=== PATIENT | female | born 1950 | race Two or more races ===

== ENCOUNTER 2022-06-09 13:46 | Outpatient (CLI) | payer OTHER ==
[~2022-06-09 13:46] MED LIST: NABUMETONE500 MG PO; PERCOCET 5/3251 TAB PO
== END 2022-06-09 13:52 | disposition home or self-care (01) ==
LOC: MRI 13:46
PROVIDERS: ATTEND Orthopaedic Surgery
DX: M25.511 Pain in right shoulder (principal)
CPT/HCPCS: 73221

== ENCOUNTER 2024-06-08 11:00 | Inpatient (IN) | payer OTHER ==
[~2024-06-08] VITALS: Ht 167.6 cm; Wt 88.0 kg
[2024-06-08] MEDS ORDERED: TOPROL XL50 M1 (13:17)
[2024-06-08] MEDS ORDERED: LEVOTHYROXINE25 MCG PO (13:17)
[2024-06-08] MEDS ORDERED: COZAAR100 MG (13:17)
[2024-06-19] MEDS ORDERED: OxyCODONE HCL/APAP UD (PERCOCET) PO PRN (09:15)
[2024-06-19] MEDS ORDERED: ONDANSETRON HCL 2 MG/ML VIAL IV PRN (09:15)
[2024-06-19] MEDS ORDERED: MORPHINE SULFATE 2 MG/ML CARTRIDGE IV ONE (12:00)
[2024-06-19] MEDS ORDERED: CEFAZOLIN SODIUM 1,000 MG VIAL IV SCH (12:00)
[2024-06-19] MEDS ORDERED: MORPHINE SULFATE 4 MG/ML CARTRIDGE IV SCH (12:00)
[2024-06-19 14:00] VITALS: BP 129/66; O2SAT 98
[2024-06-19 15:47] VITALS: BP 139/79; O2SAT 95
[2024-06-19] MEDS ORDERED: LIDOCAINE HCL 1%/EPINEPHRINE 20ML VIAL IJ ONE (20:15)
[2024-06-19] MEDS ORDERED: BUPIVACAINE HCL/PF 0.25% 30ML VIAL InF ONE (20:15)
[2024-06-19] MEDS ORDERED: MORPHINE SULFATE 4 MG/ML VIAL IV ONE (20:15)
[2024-06-19] MEDS ORDERED: TRANEXAMIC ACID 100MG/1ML (1000MG) AMPUL IV ONE (20:15)
[2024-06-19] MEDS ORDERED: KETOROLAC TROMETHAMINE 60 MG VIAL IM ONE (20:15)
[2024-06-19] MEDS ORDERED: ORPHENADRINE CITRATE 100 MG TABLET PO SCH (21:00)
[2024-06-19] MEDS ORDERED: GABAPENTIN 100 MG CAPSULE PO SCH (21:00)
[2024-06-20 00:21] VITALS: BP 160/70; O2SAT 19
[2024-06-20] MEDS ORDERED: LEVOTHYROXINE SODIUM 25 MCG TABLET PO SCH (06:00)
[2024-06-20 07:13] LABS: HEMATOCRIT 35.8 % (36.0-45.00); HEMOGLOBIN 11.6 g/dL (12.0-15.00); MEAN CELL VOLUME 85.5 fL (80.00-100.00); MEAN CORPUSCULAR HEMOGLOBIN 27.8 pg (27.00-32.0); MEAN CORPUSCULAR HGB CONC 32.5 g/dl (32.0-36.0); PLATELET COUNT 192 K/uL (150-450); RED BLOOD COUNT 4.19 M/uL (4.00-6.00); RED CELL DISTRIBUTION WIDTH 14.2 % (11.5-14.5)
[2024-06-20 07:57] VITALS: BP 167/78; O2SAT 100
[2024-06-20] MEDS ORDERED: RIVAROXABAN 10 MG TAB PO SCH (09:00)
[2024-06-20] MEDS ORDERED: FAMOtidine 20 MG TABLET PO SCH (09:00)
[2024-06-20] MEDS ORDERED: METOPROLOL SUCCINATE 50 MG TAB.SR.24H PO SCH (09:00)
[2024-06-20] MEDS ORDERED: LOSARTAN POTASSIUM 100 MG TABLET PO SCH (09:00)
[2024-06-20 12:41] LABS: CALCIUM 9.6 mg/dL (8.5-10.1); CREATININE SERUM 0.68 mg/dL (0.55-1.02); GFR 84.12; POTASSIUM 3.57 mEq/L (3.5-5.1)
[2024-06-20 16:00] VITALS: BP 161/69; O2SAT 95
[2024-06-20] MEDS ORDERED: SOD FERRIC GLUC COMPLX/SUCROSE 62.5 MG/5 ML AMPUL IV SCH (17:00)
[2024-06-20] MEDS ORDERED: VITAMIN B COMPLEX 1 EACH PO SCH (17:00)
[2024-06-20] MEDS ORDERED: IRON FUM,PS/FOLIC ACID/VITC/B3 1 CAP CAPSULE PO SCH (17:00)
[2024-06-20] MEDS ORDERED: Cyanocobalamin/Mecobalamin 1 TAB.SL SL SCH (17:00)
[2024-06-21 00:31] VITALS: BP 167/77; O2SAT 96
[2024-06-21 07:17] LABS: HEMATOCRIT 31.5 % (36.0-45.00); HEMOGLOBIN 10.3 g/dL (12.0-15.00); MEAN CELL VOLUME 84.5 fL (80.00-100.00); MEAN CORPUSCULAR HEMOGLOBIN 27.7 pg (27.00-32.0); MEAN CORPUSCULAR HGB CONC 32.7 g/dl (32.0-36.0); PLATELET COUNT 164 K/uL (150-450); RED BLOOD COUNT 3.72 M/uL (4.00-6.00); RED CELL DISTRIBUTION WIDTH 14.1 % (11.5-14.5)
[2024-06-21 08:00] VITALS: BP 162/77; O2SAT 99
[2024-06-21] MEDS ORDERED: GABAPENTIN100 MG PO (12:09)
[2024-06-21] MEDS ORDERED: NORFLEX100MG PO (12:09)
[2024-06-21] MEDS ORDERED: OXYC1TAB9 PO (12:09)
[2024-06-21] MEDS ORDERED: XARELTO10 MG PO (12:09)
== END 2024-06-21 15:13 | DRG 470 ==
LOC: SURG 06-19 05:31 → O/R 06-19 05:31 → SURH 06-19 07:00 → SURG 06-19 12:55
PROVIDERS: ADMIT Orthopaedic Surgery; ATTEND Orthopaedic Surgery
PROC: 0SRC0JZ Replacement of Right Knee Joint with Synthetic Substitute, Open Approach (ICD-10-PCS; principal; 2024-06-19 07:00)
DX: M17.11 Unilateral primary osteoarthritis, right knee (principal); D62 Acute posthemorrhagic anemia; M85.661 Other cyst of bone, right lower leg; I10 Essential (primary) hypertension

== ENCOUNTER 2025-04-09 11:00 | Inpatient (IN) | payer OTHER ==
[~2025-04-09] VITALS: Ht 167.6 cm; Wt 86.2 kg
[~2025-04-09 11:00] MED LIST changes: +COZAAR100 MG; +GABAPENTIN100 MG PO; +LEVOTHYROXINE25 MCG PO; +NORFLEX100MG PO; +OXYC1TAB9 PO; +TOPROL XL50 M1; +XARELTO10 MG PO
[2025-04-09] MEDS ORDERED: LASIX20 MG (14:28)
[2025-04-09] MEDS ORDERED: ADULT LOW DOSE81 M1 (14:29)
[2025-04-09 14:36] VITALS: BP 170/80
[2025-04-16] MEDS ORDERED: CEFAZOLIN SODIUM 1,000 MG VIAL ONE ×2 (07:04→11:56)
[2025-04-16] MEDS ORDERED: TRANEXAMIC ACID 100MG/1ML (1000MG) AMPUL ONE (07:16)
[2025-04-16] MEDS ORDERED: BUPIVACAINE HCL/MPF 0.5% 30ML VIAL ONE (07:17)
[2025-04-16] MEDS ORDERED: KETOROLAC TROMETHAMINE 60 MG VIAL IM ONE (07:17)
[2025-04-16] MEDS ORDERED: LIDOCAINE HCL 1%/EPINEPHRINE 20ML VIAL IJ ONE (07:18)
[2025-04-16] MEDS ORDERED: VANCOMYCIN HCL 1,000 MG VIAL ONE (07:34)
[2025-04-16] MEDS ORDERED: ONDANSETRON HCL 2 MG/ML VIAL IV PRN (10:00)
[2025-04-16] MEDS ORDERED: MORPHINE SULFATE 4 MG/ML CARTRIDGE IV SCH (12:00)
[2025-04-16] MEDS ORDERED: CEFAZOLIN SODIUM 1,000 MG VIAL IV SCH (12:00)
[2025-04-16] MEDS ORDERED: OxyCODONE HCL 5 MG TABLET (ROXICODONE) PO SCH (12:00)
[2025-04-16 14:59] VITALS: BP 149/60
[2025-04-16] MEDS ORDERED: ENALAPRILAT DIHYDRATE 1.25 MG/ML VIAL IV PRN (16:00)
[2025-04-16 16:38] VITALS: BP 159/67
[2025-04-16] MEDS ORDERED: ORPHENADRINE CITRATE 100 MG TABLET PO SCH (21:00)
[2025-04-16] MEDS ORDERED: GABAPENTIN 100 MG CAPSULE PO SCH (21:00)
[2025-04-17 00:16] VITALS: BP 160/80
[2025-04-17 01:40] LABS: BASO % 0.3 % (0.1-1.2); EOS # 0.06 (0.04-0.54); EOS % 0.9 % (0.7-7.0); LYMPH # 0.83 (1.18-3.74); LYMPH % 12.8 % (19.3-53.1); MEAN PLATELET VOLUME 10.80 fl (9.4-12.4); MONO # 0.57 (0.24-0.82); MONO % 8.8 % (4.7-12.5); NEUT # 5.00 (1.56-6.13); NEUT % 77.0 % (34.0-71.1); RED CELL DISTRIBUTION WIDTH 14.7 % (11.6-14.4)
[2025-04-17 05:00] VITALS: BP 170/70
[2025-04-17] MEDS ORDERED: LEVOTHYROXINE SODIUM 25 MCG TABLET PO SCH (06:00)
[2025-04-17 08:00] VITALS: BP 155/70
[2025-04-17] MEDS ORDERED: METOPROLOL SUCCINATE 100 MG TAB.SR.24H PO SCH (09:00)
[2025-04-17] MEDS ORDERED: RIVAROXABAN 10 MG TAB PO SCH (09:00)
[2025-04-17 14:07] LABS: COVID-19 AG NEGATIVE (NEGATIVE)
[2025-04-17 14:19] LABS: BUN CREA RATIO 24.0 (7.0-25.0); CREATININE SERUM 0.54 mg/dL (0.55-1.02); GFR 109.76; GLUCOSE FASTING 89.0 mg/dL (65-100); OSMOLALITY SERUM 279.0 MOSM/KG (275-295)
[2025-04-17] MEDS ORDERED: SOD FERRIC GLUC COMPLX/SUCROSE 62.5 MG/5 ML AMPUL IV SCH (17:00)
[2025-04-17 20:09] VITALS: BP 155/72
[2025-04-18] VITALS: BP 150/76
[2025-04-18 07:08] LABS: BASO % 0.4 % (0.1-1.2); EOS # 0.18 (0.04-0.54); EOS % 2.3 % (0.7-7.0); LYMPH # 0.69 (1.18-3.74); LYMPH % 8.7 % (19.3-53.1); MEAN PLATELET VOLUME 11.60 fl (9.4-12.4); MONO # 0.64 (0.24-0.82); MONO % 8.1 % (4.7-12.5); NEUT # 6.35 (1.56-6.13); NEUT % 80.1 % (34.0-71.1); RED CELL DISTRIBUTION WIDTH 14.5 % (11.6-14.4)
[2025-04-18] MEDS ORDERED: Cyanocobalamin/Mecobalamin 1 TAB.SL SL SCH (09:00)
[2025-04-18 09:09] VITALS: BP 165/76
[2025-04-18] MEDS ORDERED: NORFLEX100MG PO (12:33)
[2025-04-18] MEDS ORDERED: XARELTO10 MG PO (12:34)
[2025-04-18] MEDS ORDERED: GABAPENTIN100 MG PO (12:34)
[2025-04-18] MEDS ORDERED: PERCOCET 5-3251 EACH PO (12:36)
[2025-04-18] MEDS ORDERED: NASAL MIST126 ML NASAL (12:36)
== END 2025-04-18 18:00 | DRG 470 ==
LOC: OB/GYN 04-16 06:00 → O/R 04-16 06:00 → SURH 04-16 07:00 → OB/GYN 04-16 12:31
PROVIDERS: Orthopaedic Surgery; ADMIT Orthopaedic Surgery; ATTEND Orthopaedic Surgery
PROC: 0SRD0JZ Replacement of Left Knee Joint with Synthetic Substitute, Open Approach (ICD-10-PCS; principal; 2025-04-16 07:00)
DX: M17.11 Unilateral primary osteoarthritis, right knee (principal); D62 Acute posthemorrhagic anemia; M85.661 Other cyst of bone, right lower leg; I10 Essential (primary) hypertension